=== PATIENT | male | born 1965 | race Caucasian/White ===

== ENCOUNTER 2018-08-11 18:11 | Emergency (ER) | payer OTHER ==
[2018-08-11] MEDS: IBUPROFEN 800 MG TAB PO (19:40)
[2018-08-11] MEDS: DEXAMETHASONE 10 MG/ML 1 ML INJ IM (19:41)
== END 2018-08-11 19:43 | disposition home or self-care (01) ==
LOC: FTE 18:11
DX: M54.31 Sciatica, right side (principal)
CPT/HCPCS: 96372; 99284-25